=== PATIENT | female | born 1980 ===

== ENCOUNTER 2021-12-28 06:28 | Day surgery (SDC) | payer OTHER | END 2021-12-28 17:05 | disposition home or self-care (01) | LOC: CIR.AMB 06:28 | PROVIDERS: ATTEND Orthopaedic Surgery Hand Surgery | DX: S63.301A Traumatic rupture of unspecified ligament of right wrist, initial encounter (principal); I10 Essential (primary) hypertension; K21.9 Gastro-esophageal reflux disease without esophagitis; Z20.822 Contact with and (suspected) exposure to COVID-19 ==